=== PATIENT | female | born 2000 | race Caucasian/White ===

== ENCOUNTER 2019-01-03 16:05 | Emergency (ER) | payer MEDICAID, OTHER ==
[~2019-01-03] VITALS: Ht 162.6 cm; Wt 64.0 kg
[2019-01-03] MEDS ORDERED: FLUORESCEIN SODIUM 1MG/STRIP OP ONE (17:15)
[2019-01-03] MEDS ORDERED: TETRACAINE 0.5% OPHTH DROPS 4ML OP ONE (17:15)
[2019-01-03] MEDS ORDERED: IBUPROFEN 600MG TABLET PO ONE (17:30)
[2019-01-03 19:56] VITALS: BP 126/66
[2019-01-03] MEDS ORDERED: BACITRACIN ZINC OINT UDPKT TOP ONE (20:00)
== END 2019-01-03 20:03 | disposition home or self-care (01) ==
LOC: ER 16:27
DX: T20.10XA Burn of first degree of head, face, and neck, unspecified site, initial encounter (principal); T31.0 Burns involving less than 10% of body surface; X19.XXXA Contact with other heat and hot substances, initial encounter; Y93.89 Activity, other specified; Y92.89 Other specified places as the place of occurrence of the external cause; Y99.8 Other external cause status
CPT/HCPCS: 16000; 81025; 99284